=== PATIENT | female | born 1995 | race African-American/Black ===

== ENCOUNTER → 2017-03-09 | Outpatient (CLI) | payer MEDICAID ==
[~2017-03-09] MED LIST: DOCU-131 PO; HYDR-3240 PO; IBUP-1222 PO; PNV1TABL11 PO
== END | disposition home or self-care (01) ==
LOC: CFH 14:50
PROVIDERS: ATTEND Registered Nurse
DX: I08.1 Rheumatic disorders of both mitral and tricuspid valves (principal); Q85.01 Neurofibromatosis, type 1
CPT/HCPCS: 93306

== ENCOUNTER 2017-12-20 15:46 | Emergency (ER) | payer MEDICAID ==
[~2017-12-20] VITALS: Ht 167.6 cm; Wt 67.6 kg
[2017-12-20 15:50] VITALS: BP 108/72
[2017-12-20] MEDS ORDERED: MECLIZINE CHEWABLE 25 MG TAB ONE (16:15)
[2017-12-20] MEDS ORDERED: DIPHENHYDRAMINE 25 MG CAPSULE ONE (16:22)
[2017-12-20] MEDS ORDERED: KETOROLAC 30 MG/1 ML ONE (16:23)
[2017-12-20] MEDS ORDERED: PROCHLORPERAZINE 5 MG/ML, 2ML ONE (16:28)
[2017-12-20] MEDS ORDERED: MECLIZINE CHEWABLE 25 MG TAB PO ONE (16:30)
[2017-12-20] MEDS ORDERED: KETOROLAC 30 MG/1 ML IM ONE (16:30)
[2017-12-20] MEDS ORDERED: PROCHLORPERAZINE 5 MG/ML, 2ML IM ONE (16:30)
[2017-12-20] MEDS ORDERED: DIPHENHYDRAMINE 25 MG CAPSULE PO ONE (16:30)
[2017-12-20 16:40] LABS: BASOPHILS # (AUTO) 0.02 x10^3/uL (0-0.1); BASOPHILS % (AUTO) 0 % (0-1); EOSINOPHILS # (AUTO) 0.05 x10^3/uL (0-0.4); EOSINOPHILS % (AUTO) 1 % (1-7); LYMPHOCYTES # (AUTO) 1.13 x10^3/uL (1-3.4); LYMPHOCYTES % (AUTO) 22 % (22-44); MD NO; MEAN CORPUSCULAR HEMOGLOBIN 28.9 pg (27.0-34.8); MEAN CORPUSCULAR HGB CONC 33.6 g/dL (32.4-35.8); MEAN CORPUSCULAR VOLUME 86.2 fL (80-100); MEAN PLATELET VOLUME 10.4 fL (7.4-10.4); MONOCYTES # (AUTO) 0.44 x10^3/uL (0.2-0.8); MONOCYTES % (AUTO) 8 % (2-9); NEUTROPHILS # (AUTO) 3.61 x10^3/uL (1.8-6.8); NEUTROPHILS % (AUTO) 69 % (42-75); PLATELET COUNT 185 x10^3/uL (130-400); RED BLOOD COUNT 4.62 x10^6/uL (3.82-5.3)
[2017-12-20 16:46] LABS: ANION GAP 8 mmol/L (5-15); CALCIUM 9.4 mg/dL (8.5-10.1); CHLORIDE 107 mmol/L (98-107); CREATININE 0.68 mg/dL (0.55-1.02)
== END 2017-12-20 17:30 | disposition home or self-care (01) ==
LOC: ED 17:24
DX: R51 Headache (principal)
CPT/HCPCS: 36415; 80048; 82040; 84703; 85025; 93005; 96372; 99285; J0780; J1885; Q0163

== ENCOUNTER 2018-02-08 14:05 | Emergency (ER) | payer MEDICAID ==
[~2018-02-08] VITALS: Ht 167.6 cm; Wt 67.6 kg
[2018-02-08 14:16] VITALS: BP 119/79
== END 2018-02-08 15:06 | disposition home or self-care (01) ==
LOC: ED 14:55
DX: J03.00 Acute streptococcal tonsillitis, unspecified (principal); R53.81 Other malaise
CPT/HCPCS: 99283

== ENCOUNTER → 2019-10-31 | Emergency (ER) | payer MEDICAID ==
[~2019-10-31] VITALS: Ht 167.6 cm; Wt 59.0 kg
[~2019-10-31] MED LIST changes: +HYDR50CA2 PO; +NEOSPORIN OINT. PKT 1 PACKET ONE; +PRAZ1CAP2 PO; +SERT50TA28 PO
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
--- NOTE | 2019-10-31 23:57 | NUR ---
ATTEMPTED TO COLLECT UA, PATIENT TRIED, BUT COULD NOT URINATE AT THIS TIME
[2019-11-01 00:01] LABS: BASOPHILS % (AUTO) 0 % (0-1); EOSINOPHILS # (AUTO) 0.07 x10^3/uL (0-0.4); EOSINOPHILS % (AUTO) 1 % (1-7); LYMPHOCYTES # (AUTO) 1.62 x10^3/uL (1-3.4); LYMPHOCYTES % (AUTO) 21 % (22-44); MD NO; MEAN CORPUSCULAR HEMOGLOBIN 24.6 pg (27.0-34.8); MEAN CORPUSCULAR HGB CONC 32.2 g/dL (32.4-35.8); MEAN CORPUSCULAR VOLUME 76.4 fL (80-100); MEAN PLATELET VOLUME 9.9 fL (7.4-10.4); MONOCYTES # (AUTO) 0.54 x10^3/uL (0.2-0.8); MONOCYTES % (AUTO) 7 % (2-9); NEUTROPHILS % (AUTO) 71 % (42-75); PLATELET COUNT 238 x10^3/uL (130-400); RED BLOOD COUNT 5.09 x10^6/uL (3.82-5.3); RED CELL DISTRIBUTION WIDTH 17.1 % (9.6-15.2)
[2019-11-01 00:12] LABS: ALANINE AMINOTRANSFERASE 12 U/L (12-78); ALBUMIN 4.1 g/dL (3.4-5.0); ANION GAP 7 mmol/L (5-15); CALCIUM 8.9 mg/dL (8.5-10.1); CHLORIDE 107 mmol/L (98-107); CREATININE 0.77 mg/dL (0.55-1.02)
[2019-11-01 00:14] LABS: ALKALINE PHOSPHATASE 60 U/L (45-117); BILIRUBIN,TOTAL 0.4 mg/dL (0.2-1.0); SALICYLATE LEVEL < 1.7 mg/dL (2.8-20.0)
--- NOTE | 2019-11-01 01:00 | NUR ---
Break RN: Pt sleeping with resp even and unlabored. Room secured and sitter in place.
--- NOTE | 2019-11-01 01:33 | NUR ---
report of pt from shanae valenzuela and assuming care of pt at this time. pt asleep in [facility] at this time; ej. sitter outside of pt room for direct observation of pt.
--- NOTE | 2019-11-01 02:58 | NUR ---
pt asleep in [facility] at this time; ej. sitter outside of pt room for direct observation of pt.
--- NOTE | 2019-11-01 03:42 | NUR ---
Report received from TANISHA Israel. This RN to assume care.
--- NOTE | 2019-11-01 03:42 | NUR ---
Patient sleeping in [place]. Respirations even and unlabored. Room secured; sitter outside. Belongings in cabinet.
--- NOTE | 2019-11-01 04:36 | NUR ---
Patient sleeping in [facility]. Respirations even and unlabored. Room secured; sitter outside. Belongings in cabinet.
--- NOTE | 2019-11-01 05:51 | NUR ---
Patient sleeping in [place]. Respirations even and unlabored. Room secured; sitter outside. Belongings in cabinet.
--- NOTE | 2019-11-01 06:32 | NUR ---
patient packet faxed to [facility], [facility], and [facility].
--- NOTE | 2019-11-01 06:49 | NUR ---
Report to TANISHA Huber.
--- NOTE | 2019-11-01 06:51 | NUR ---
Report from TANISHA Ricks.
[2019-11-01 06:57] LABS: AMPHETAMINE SCREEN, URINE Negative (Negative); BARBITURATE SCREEN, URINE Negative (Negative); BENZODIAZEPINE SCREEN, URINE Negative (Negative); CANNABINOID SCREEN, URINE Positive (Negative); COCAINE SCREEN, URINE Negative (Negative); METHADONE SCREEN, URINE Negative (Negative); OPIATE SCREEN, URINE Negative (Negative)
--- NOTE | 2019-11-01 07:05 | NUR ---
Spoke with Martha from [facility] and states Dr. Burns is accepting. Requesting transport to be set up for around 1030.
--- NOTE | 2019-11-01 08:12 | NUR ---
PT AWAKE IN ROOM. ROOM SECURED. SITTER OUTSIDE ROOM.
--- NOTE | 2019-11-01 08:40 | NUR ---
THROUGHPUT: [facility] CALLED FOR TRANSPORT AT 1030 TODAY.
[2019-11-01 08:42] VITALS: BP 102/65
--- NOTE | 2019-11-01 08:55 | NUR ---
PATIENT GIVEN FOOD TRAY
--- NOTE | 2019-11-01 09:32 | NUR ---
[facility] ([facility]) CANCELLED, PT TO BE TRANSFERRED TO [facility].
--- NOTE | 2019-11-01 09:40 | NUR ---
Report to 2N superviser.
== END ==
LOC: ED 23:58
DX: S51.812A Laceration without foreign body of left forearm, initial encounter (principal); F32.1 Major depressive disorder, single episode, moderate; G89.11 Acute pain due to trauma; Y33.XXXA Other specified events, undetermined intent, initial encounter; Y93.89 Activity, other specified; Y92.89 Other specified places as the place of occurrence of the external cause; Y99.8 Other external cause status
CPT/HCPCS: 36415; 80053; 80307; 85025; 99283; 99284

== ENCOUNTER 2019-11-01 09:45 | Inpatient (IN) | payer MEDICAID ==
[~2019-11-01] VITALS: Ht 167.6 cm; Wt 64.5 kg
[~2019-11-01 09:45] MED LIST changes: -HYDR50CA2 PO; -NEOSPORIN OINT. PKT 1 PACKET ONE; -PRAZ1CAP2 PO; -SERT50TA28 PO
[2019-11-01] MEDS ORDERED: ACETAMINOPHEN 325 MG TABLET PO PRN (10:30)
[2019-11-01] MEDS ORDERED: POLYETHYLENE GLYCOL 17 GM PACKET PO PRN (10:30)
[2019-11-01] MEDS ORDERED: BISACODYL 10 MG SUPP PR PRN (10:30)
[2019-11-01] MEDS ORDERED: DOCUSATE 100 MG CAPSULE PO PRN (10:30)
[2019-11-01] MEDS ORDERED: ONDANSETRON ODT 4 MG PO PRN (10:30)
[2019-11-01 11:09] VITALS: BP 103/69
[2019-11-01] MEDS: SERTRALINE 50MG TABLET PO SCH (12:18)
[2019-11-01] MEDS ORDERED: CHLORDIAZEPOXIDE 25 MG CAPSULE PO PRN ×2 (13:00)
[2019-11-01 19:32] LABS: MICROSCOPIC NOT IND
[2019-11-01 19:36] VITALS: BP 100/66
[2019-11-01 19:37] LABS: CULTURE INDICATED? NO
[2019-11-02 05:40] LABS: CHOL/HDL RATIO 2.4; FREE T4 (FREE THYROXINE) 0.98 ng/dL (0.76-1.46); LDL/HDL RATIO 1.2 (0.5-3.0)
[2019-11-02 07:25] VITALS: BP 112/66
[2019-11-02] MEDS: SERTRALINE 50MG TABLET PO SCH (09:31)
[2019-11-02] MEDS ORDERED: HYDROXYZINE PAMOATE 25MG CAP ONE (15:06)
[2019-11-02] MEDS: HYDROXYZINE PAMOATE 50MG CAP PO PRN (15:12)
[2019-11-02 19:38] VITALS: BP 99/69
[2019-11-03 07:33] VITALS: BP 107/73
[2019-11-03] MEDS: SERTRALINE 50MG TABLET PO SCH (09:08)
[2019-11-03 19:37] VITALS: BP 109/70
[2019-11-03] MEDS ORDERED: HYDROXYZINE PAMOATE 25MG CAP ONE (20:26)
[2019-11-03] MEDS: HYDROXYZINE PAMOATE 50MG CAP PO PRN (20:28)
[2019-11-04 07:31] VITALS: BP 100/63
[2019-11-04] MEDS: SERTRALINE 50MG TABLET PO SCH (09:02)
[2019-11-04 19:00] VITALS: BP 111/66
[2019-11-04] MEDS: HYDROXYZINE PAMOATE 50MG CAP PO PRN (20:08)
[2019-11-05 07:43] VITALS: BP 106/62
[2019-11-05] MEDS: SERTRALINE 50MG TABLET PO SCH (08:34)
[2019-11-05 19:24] VITALS: BP 111/74
[2019-11-05] MEDS: HYDROXYZINE PAMOATE 50MG CAP PO PRN (21:29)
[2019-11-06 07:25] VITALS: BP 110/74
[2019-11-06] MEDS: SERTRALINE 50MG TABLET PO SCH (09:59)
[2019-11-06] MEDS ORDERED: PRAZ1CAP2 PO (13:18)
[2019-11-06] MEDS ORDERED: SERT50TA28 PO (13:18)
[2019-11-06] MEDS ORDERED: HYDR50CA2 PO (13:18)
[2019-11-06 19:02] VITALS: BP 104/68
[2019-11-06] MEDS: HYDROXYZINE PAMOATE 50MG CAP PO PRN (20:17)
[2019-11-06] MEDS ORDERED: PRAZOSIN 1 MG CAPSULE PO SCH (21:00)
[2019-11-07 07:17] VITALS: BP 105/66
[2019-11-07] MEDS: SERTRALINE 50MG TABLET PO SCH (08:03)
== END 2019-11-07 10:25 | disposition home or self-care (01) | DRG 885 ==
LOC: 2N 10:00
PROVIDERS: ADMIT Psychiatry & Neurology Psychosomatic Medicine; ATTEND Psychiatry & Neurology Psychosomatic Medicine
DX: F32.2 Major depressive disorder, single episode, severe without psychotic features (principal); F10.20 Alcohol dependence, uncomplicated; F12.10 Cannabis abuse, uncomplicated; F43.10 Post-traumatic stress disorder, unspecified; Y90.9 Presence of alcohol in blood, level not specified; Q85.00 Neurofibromatosis, unspecified; Z79.899 Other long term (current) drug therapy; Z81.8 Family history of other mental and behavioral disorders; Z83.3 Family history of diabetes mellitus; Z91.19 Patient's noncompliance with other medical treatment and regimen
CPT/HCPCS: 36415; 71045; 80061; 81003; 84439; 84443; 93005